=== PATIENT | female | born 1970 | race Caucasian/White ===

== ENCOUNTER 2022-02-02 22:55 | Emergency (ER) | payer OTHER, SELFPAY ==
[2022-02-02 23:06] VITALS: BP 165/100; PULSE 90; O2SAT 95
[2022-02-02 23:51] VITALS: BP 136/92; PULSE 84; RESP 16; TEMP 37.1; O2SAT 99; BMI 23.3
[2022-02-03 00:05] LABS: MANUAL DIFF FLAG NO
[2022-02-03 00:13] LABS: Basophils Absolute Auto 0.1 X10*3/uL (0.0-0.2); Basophils Percent Auto 0.4 % (0-2); Eosinophils Absolute Auto 0.2 X10*3/uL (0.0-0.4); Eosinophils Percent Auto 1.6 % (0-4); Hemoglobin 12.2 g/dl (12.0-16.0); Imm Gran Abs Auto 0.09 X10*3/uL (0.00-0.03); Imm Gran Pct Auto 0.8 % (0.0-0.4); Lymphocytes Absolute Auto 2.5 X10*3/uL (1.2-4.9); Lymphocytes Percent Auto 21.2 % (20-40); Mean Corpuscular HGB Conc 32.1 g/dl (31.0-35.0); Mean Corpuscular Hemoglobin 25.4 pg (27.0-33.0); Mean Platelet Volume 8.8 fL (9.4-12.3); Monocytes Absolute Auto 0.9 X10*3/uL (0.1-1.2); Monocytes Percent Auto 7.5 % (2-11); Neutrophils Percent Auto 68.5 % (45-73); Platelet Count 367 X10*3/uL (160-400); Red Blood Count 4.81 X10*6/uL (4.20-5.50); White Blood Count 11.6 X10*3/uL (4.8-10.8)
[2022-02-03 00:23] LABS: Anion Gap 15 (12-20); Blood Urea Nitrogen 10 mg/dL (9-16); Calcium 9.1 mg/dL (8.4-10.2); Carbon Dioxide 22 mmol/L (22-29); Chloride 106 mmol/L (96-108); Creatinine Clr Calc Pharmacy 73.1; Estimated Glomerular Filt Rate > 60; Glucose Random 107 mg/dL (60-115); Sodium 139 mmol/L (135-145)
[2022-02-03 00:26] LABS: COVID-19 Test Negative (Negative); IDNOW Serial# 55D5AD1C
[2022-02-03 00:43] VITALS: BP 150/94; PULSE 90; O2SAT 100
--- NOTE | 2022-02-03 00:43 | ED_ITS ---
HPI - General Adult General Chief complaint: Weakness Stated complaint: hypertension,headache for two weeks Time Seen by Provider: 02/03/22 00:43 History of Present Illness HPI narrative: Patient history of hyperthyroidism, anxiety, recent diagnosis of conversion disorder chronic neck pain comes here for cervical neck pain which reports extend up to the back of the head with tingling sensation for last [address] weakness and paresthesia of bilateral hands and feet has difficulty in walking was seen at [facility] had MRI of C-spine on 01/[address] which showed mild to moderate C5-C6 with severe left neural foraminal stenosis. Related Data Previous Rx's Medication Instructions Recorded gabapentin 100 mg capsule 100 mg PO BID #30 caps 02/03/22 lorazepam 1 mg tablet (Ativan) 1 mg PO BEDTIME PRN sleep #10 tabs 02/03/22 Allergies Allergy/AdvReac Type Severity Reaction Status Date / Time cyclobenzaprine Allergy Severe ANGIOEDEMA Verified 02/03/22 01:14 [Cyclobenzaprine] Flexeril Allergy Unknown Unknown Uncoded 02/03/22 01:14 Review of Systems Review of Systems: Yes all other systems are reviewed and are negative [facility] Social History Social History Advance Directives: No Physical Exam ED Vital Signs: Vital Signs - 24 hr 02/02/22 23:51 02/03/22 00:43 Temperature 98.8 F Pulse Rate 84 90 Respiratory Rate 16 Blood Pressure 136/92 H 150/94 H Pulse Oximetry 99 100 Oxygen Delivery Method Room Air Room Air BMI result Body Mass Index 23.3 Appearance: Alert. Oriented X3. No acute distress. Eyes: PERRLA, No Nystagmus HEENT: Pharynx normal. Oral Mucosa moist diffuse spasm upper back and neck area Neck: Normal inspection. Neck supple. CVS: Normal heart rate and rhythm. Pulses normal. Respiratory: No respiratory distress. Equal air entry bilateral, no wheezing/rales/rhonchi Abdomen: Soft and nontender. Bowel sounds are present, no mass palpable, no CVA tenderness Skin: Skin warm and dry. Normal skin color. Normal skin turgor. Extremities: No lower extremity edema. No calf tenderness Neuro: Oriented X 3. No motor deficit. No sensory deficit.No cerebellar signs , cranial nerves II-XII intact slight tenderness cervical spine area no midline tenderness Medical Decision Making Lab Data Result diagrams: 02/02/22 23:55 02/02/22 23:55 Labs: Lab Results 02/02/22 02/02/22 02/02/22 Range/Units 23:55 23:55 23:55 WBC 11.6 H (4.8-10.8) X10*3/uL RBC 4.81 (4.20-5.50) X10*6/uL Hgb 12.2 (12.0-16.0) g/dl Hct 38.0 (37.0-47.0) % MCV 79.0 L (80.0-98.0) fL MCH 25.4 L (27.0-33.0) pg MCHC 32.1 (31.0-35.0) g/dl RDW 15.0 (11.0-16.0) % Plt Count 367 (160-400) X10*3/uL MPV 8.8 L (9.4-12.3) fL Immature Gran % (Auto) 0.8 H (0.0-0.4) % Neut % (Auto) 68.5 (45-73) % Lymph % (Auto) 21.2 (20-40) % Tyrrell % (Auto) 7.5 (2-11) % Eos % (Auto) 1.6 (0-4) % Baso % (Auto) 0.4 (0-2) % Lymph # (Auto) 2.5 (1.2-4.9) X10*3/uL Tyrrell # (Auto) 0.9 (0.1-1.2) X10*3/uL Eos # (Auto) 0.2 (0.0-0.4) X10*3/uL Baso # (Auto) 0.1 (0.0-0.2) X10*3/uL Abs Immat Gran (auto) 0.09 H (0.00-0.03) X10*3/uL Absolute Neuts (auto) 8.0 (2.0-8.3) x10*3/uL Absolute Nucleated RBC 0.000 (0.0-0.012) X10*3/uL Nucleated RBC % (auto) 0.0 (0.0-0.2) /100WBC Sodium 139 (135-145) mmol/L Potassium 4.0 (3.3-5.1) mmol/L Chloride 106 (96-108) mmol/L Carbon Dioxide 22 (22-29) mmol/L Anion Gap 15 (12-20) BUN 10 (9-16) mg/dL Creatinine 0.77 (0.5-1.4) mg/dL Estim Creat Clear Calc 73.1 Estimated GFR > 60 Random Glucose 107 (60-115) mg/dL Calcium 9.1 (8.4-10.2) mg/dL COVID-19 (NUVIA) Negative (Negative) COVID-19 Clin Com See Note Discharge Plan Discharge Clinical Impression: Arthritis of facet joint of cervical spine, Fibromyalgia Patient Disposition: Home, Self-Care Instructions: Fibromyalgia (ED), Neck Pain (ED) Additional Instructions: Possible you might have fibromyalgia along with cervical arthritis Follow-up with neurologist/neurosurgeon as advised by your PCP Take your muscle relaxants Will add Ativan along with gabapentin for pain control Follow-up with your PCP Prescriptions: New gabapentin 100 mg capsule 100 mg PO BID Qty: 30 0RF lorazepam [Ativan] 1 mg tablet 1 mg PO BEDTIME PRN (Reason: sleep) Qty: 10 0RF Interventions: ED Discharge Assessment Last Done: 02/03/22 01:22 Discharge Date/Time: 02/03/22 01:33
[2022-02-03] MEDS: LORazepam 1 MG TABLET PO (01:18)
[2022-02-03] MEDS: Gabapentin 100 MG CAPSULE PO (01:18)
== END 2022-02-03 01:33 | disposition home or self-care (01) ==
PROVIDERS: Emergency Provider Internal Medicine; PCP Internal Medicine
DX: R51.9 Headache, unspecified (principal); M79.7 Fibromyalgia; I10 Essential (primary) hypertension; M54.2 Cervicalgia; Z20.822 Contact with and (suspected) exposure to COVID-19; Z79.899 Other long term (current) drug therapy
CPT/HCPCS: 80048; 85025; 87635; 99283